=== PATIENT | male | born 1995 | race American Indian/Alaskan Native ===

== ENCOUNTER 2017-04-01 00:58 | Emergency (ER) | payer SELFPAY ==
[2017-04-01 01:41] LABS: Urine Drugs of Abuse Note Disclamer
[2017-04-01 01:56] LABS: Bilirubin,Urine NEG (Negative); Blood,Urine NEG (Negative); Ketones,Urine NEG (Negative); Leukocyte Esterase,Urine LG (Negative); Nitrite,Urine NEG (Negative); Protein,Urine <15 mg/dL mg/dL (Negative); RBC,Urine < 1.0 /HPF (0.0-6.0); Urobilinogen,Urine < 2.0 mg/dL (<2.0)
[2017-04-01 02:12] LABS: Basophils % (Auto) 0.4 % (0.0-1.8); Eosinophils % (Auto) 0.2 % (0.0-4.3); Hematocrit 47.1 % (35.5-45.6); Hemoglobin 15.7 gm/dl (11.8-15.2); Mean Corpuscular HGB Conc 33 % (32-34); Mean Corpuscular Hemoglobin 29 pg (28-32); Mean Corpuscular Volume 86 fl (84-94); Platelet Count 203 K/mm3 (140-440); Red Blood Count 5.51 M/mm3 (3.65-5.03); Red Cell Distribution Width 14.2 % (13.2-15.2)
[2017-04-01 03:03] LABS: Anion Gap 19 mmol/L; BUN/Creatinine Ratio 6.66; Blood Urea Nitrogen 6 mg/dL (9-20); Carbon Dioxide 27 mmol/L (22-30); Chloride 92.8 mmol/L (98-107); Glucose 116 mg/dL (75-100); Potassium 4.1 mmol/L (3.6-5.0); Sodium 135 mmol/L (137-145)
--- NOTE | 2017-04-01 03:26 | Emergency Department Report ---
HPI - General Chief Complaint: Psych Time Seen by Provider: 04/01/17 03:15 - HPI HPI: 21-year-old brought to ED with suicidal ideation, patient denies any plan that does voice, strong feelings of suicidal ideation. Patient placed in safe room upon ER arrival. ED Past Medical Hx - Surgical History Past Surgical History?: No - Family History Family history: hypertension - Social History Smoking Status: Never Smoker Substance Use Type: None - Medications Home Medications: Home Medications Medication Instructions Recorded Confirmed Last Taken Type No Known Home Medications [No 04/01/17 04/01/17 Unknown History Reported Home Medications] ED Review of Systems ROS: Stated complaint: MH EVAL Other details as noted in HPI Comment: All other systems reviewed and negative Neurological: as per HPI Psychiatric: anxiety, suicidal thoughts Physical Exam - Physical Exam Vital Signs: Vital Signs 04/01/17 01:07 Temperature 98.7 F Pulse Rate 89 Respiratory 16 Rate Blood Pressure 159/98 [Right] O2 Sat by Pulse 100 Oximetry Physical Exam: Gen. alert and oriented 3 in no distress Head atraumatic normocephalic Eyes PERR LA EOMI Chest regular rate and rhythm normal S1-S2 lungs clear bilaterally Abdomen soft nondistended Back no point tenderness paravertebral tenderness Neuro no focal deficit. Psych depressed mood with SI ED Course Vital Signs 04/01/17 01:07 Temperature 98.7 F Pulse Rate 89 Respiratory 16 Rate Blood Pressure 159/98 [Right] O2 Sat by Pulse 100 Oximetry ED Medical Decision Making - Lab Data Result diagrams: 04/01/17 01:58 04/01/17 01:58 Critical care attestation.: If time is entered above; I have spent that time in minutes in the direct care of this critically ill patient, excluding procedure time. ED Disposition Clinical Impression: Suicidal ideations Disposition: DC/TX-65 PS[facility] HOSP/PSY UNIT Is pt being admited?: No Does the pt Need Aspirin: No Condition: Stable Referrals: PRIMARY CARE, [Primary Care Provider] - 3-5 Days
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
[2017-04-02] MEDS: COGENTIN PO SCH (22:46)
[2017-04-02] MEDS: RisperDAL PO SCH (22:46)
--- NOTE | 2017-04-03 14:04 | Progress Note ---
Subjective - Reason for Consult Consult date: 04/03/17 Reason for consult: Psychiatry Follow-up - Chief Complaint Chief complaint: "I feel better" 21-year-old brought to ED with SI's and AH's. Today patient is calm and cooperative during the assessment. He stated that he feel much better today and denies that his brain is going to "explode." He stated on initial assessment that his brain was going to explode. He was not able to elaborate why he felt that way yesterday. He stated that he got needed rest the last 24 hours and feels "great." He denies hearing voices, but still have a circumstantial thought process. He denies SI/HI's, AVH's, and depression. He denies any side effects of his medications. Mental Status Exam - Vital signs Last Vital Signs Temp 97.9 F 04/03/17 10:00 Pulse 72 04/03/17 10:00 Resp 18 04/03/17 10:00 BP 118/70 04/03/17 10:00 Pulse Ox 99 04/03/17 10:00 - Exam Narrative exam: MSE: Appearance: calm, cooperative Behavior: regular eye contact Speech: regular rate and tone Mood: "so much better" Affect: congruent to mood Thought Process: circumstantial Thought Content: denies SI/HI's and AVH's Motor Activity: ambulatory Cognition: A/Ox 3 Insight: fair Judgment: fair Assessment and Plan Impression: Historical Dx: Bipolar DO and PTSD. 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 Substance Use DO (amphetamines). Today patient is calm and cooperative with a circumstantial thought process. Recommendation/Plan: Evaluate 1013 in 24 hours to determine proper dispo Continue Risperdal 0.5 mg PO HS for mood/psychotic symptoms and Cogentin 0.5 mg PO HS for EPS Prevention. Discussed possible metabolic side effects of Risperdal with patient.
[2017-04-03] MEDS: COGENTIN PO SCH (21:48)
[2017-04-03] MEDS: RisperDAL PO SCH (21:56)
--- NOTE | 2017-04-04 08:37 | Progress Note ---
Subjective - Reason for Consult Reason for consult: psych consult - Chief Complaint Chief complaint: 21-year-old brought to ED with SI's and AH's. Today patient notes that he is doing well. He states that he's not having any suicidal thoughts nor any homicidal thoughts. He states that this was simply just an issue of him not coping very well. He is tolerating the medications states that his mom and grandma can pick him up today. Per the nursing staff there's been no issues with the patient. Patient is not showing any current acute risk of harming himself or others. Mental Status Exam - Vital signs Last Vital Signs Temp 97.7 F 04/04/17 08:03 Pulse 65 04/04/17 08:03 Resp 16 04/04/17 08:03 BP 92/53 04/04/17 08:03 Pulse Ox 99 04/04/17 08:03 - Exam Orientation: time, place, person Affect: normal Mood: appropriate Thought Process: Intact Perceptions: none Speech: normal rate and pattern Concentration: focused Motor activity: normal Level of consciousness: alert Memory: Intact Sleep Symptoms: None Appetite: increased Interaction: cooperative Mini mental status exam(if necessary): 24-30 Assessment and Plan Impression: Historical Dx: Bipolar DO and PTSD. 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 Substance Use DO (amphetamines). Recommendation/Plan: At this time the patient is in no acute risk of harm to self or others. Rescind the 1013- follow up with outpt care. patient notes that his family is able to pick him up when discharged.
[2017-04-04 16:28] VITALS: BP 112/72
== END 2017-04-04 16:25 ==
LOC: EEVIPCON 00:58 → ED 00:58
DX: R45.851 Suicidal ideations (principal)
CPT/HCPCS: 36415; 80048; 80307; 81001; 85025; 99285; G0480; 80320

== ENCOUNTER 2019-04-10 15:01 | Emergency (ER) | payer SELFPAY ==
[2019-04-10 15:36] VITALS: BP 144/94
--- NOTE | 2019-04-10 15:37 | Event Note ---
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 Further treatment and workup at subsequent clinical providers discretion. Patient/guardian urged not to elope from the ED as their condition may be serious if not clinically assessed and managed.
--- NOTE | 2019-04-10 15:42 | Emergency Department Report ---
ED Extremity Problem HPI - General Chief complaint: Extremity Injury, Upper Stated complaint: (L) ARM PAIN Time Seen by Provider: 04/10/19 15:33 Source: patient Mode of arrival: Ambulatory Limitations: No Limitations - History of Present Illness Initial comments: pt is a 23 yo male who presents to the ED with c/o BUE soreness that began a couple weeks ago. 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 states he has pain and muscle soreness/aches in the BUE after frequent use. he denies any fall or injury. he denies any numbness or weakness. pt denies any PMHx or allergies to meds. - Related Data Previous Rx's Medication Instructions Recorded Last Taken Type Benztropine [Cogentin] 0.5 mg PO HS #90 tablet 04/04/17 Unknown Rx risperiDONE [RisperDAL] 0.5 mg PO HS #90 tablet 04/04/17 Unknown Rx Cyclobenzaprine [Flexeril] 10 mg PO QHS PRN #10 tablet 04/10/19 Unknown Rx Naproxen [Naprosyn TAB] 500 mg PO BID PRN #14 tablet 04/10/19 Unknown Rx Allergies Allergy/AdvReac Type Severity Reaction Status Date / Time dust Allergy Unknown Uncoded 04/02/17 12:32 pet dander Allergy Unknown Uncoded 04/02/17 12:32 ED Review of Systems ROS: Stated complaint: (L) ARM PAIN Other details as noted in HPI Comment: All other systems reviewed and negative ED Past Medical Hx - Past Medical History Hx Psychiatric Treatment: Yes (BIPOLAR PTSD) Additional medical history: ADHD - Surgical History Past Surgical History?: No - Social History Smoking Status: Never Smoker Substance Use Type: None - Medications Home Medications: Home Medications Medication Instructions Recorded Confirmed Last Taken Type Benztropine [Cogentin] 0.5 mg PO HS #90 tablet 04/04/17 Unknown Rx risperiDONE [RisperDAL] 0.5 mg PO HS #90 tablet 04/04/17 Unknown Rx Cyclobenzaprine [Flexeril] 10 mg PO QHS PRN #10 tablet 04/10/19 Unknown Rx Naproxen [Naprosyn TAB] 500 mg PO BID PRN #14 tablet 04/10/19 Unknown Rx ED Physical Exam - General Limitations: No Limitations General appearance: alert, in no apparent distress - Head Head exam: Present: atraumatic, normocephalic - Eye Eye exam: Present: normal appearance - ENT ENT exam: Present: mucous membranes moist - Respiratory Respiratory exam: Present: normal lung sounds bilaterally. Absent: respiratory distress, wheezes, rales, rhonchi, stridor, chest wall tenderness, accessory muscle use, decreased breath sounds, prolonged expiratory - Cardiovascular Cardiovascular Exam: Present: regular rate, normal rhythm, normal heart sounds. Absent: systolic murmur, diastolic murmur, rubs, gallop - Extremities Exam Extremities exam: Present: other (2+ radial pulses bilaterally, no bony tenderness to anywhere in the BUE, FROM of the BUE with no diffculty at all, sensation intact, mild soreness in the bilateral biceps, no edema of the BUE, no erythema of the BUE, no ecchymosis of the BUE, able to do full flexion of the biceps bilaterally without difficulty ) - Neurological Exam Neurological exam: Present: alert, oriented X3 - Psychiatric Psychiatric exam: Present: normal affect, normal mood - Skin Skin exam: Present: warm, dry, intact ED Course Vital Signs 04/10/19 15:34 Temperature 98.4 F Pulse Rate 96 H Respiratory 16 Rate Blood Pressure 144/94 [Left] O2 Sat by Pulse 96 Oximetry ED Medical Decision Making - Medical Decision Making pt is a 23 yo male who presents to the ED with c/o BUE soreness that began a couple weeks ago. 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 states he has pain and muscle soreness/aches in the BUE after frequent use. he denies any fall or injury. he denies any numbness or weakness. pt denies any PMHx or allergies to meds. VSS. on exam: 2+ radial pulses bilaterally, no bony tenderness to anywhere in the BUE, FROM of the BUE with no diffculty at all, sensation intact, mild soreness in the bilateral biceps, no edema of the BUE, no erythema of the BUE, no ecchymosis of the BUE, able to do full flexion of the biceps bilaterally without difficulty. pt given prescription for anti-inflammatory and muscle relaxer. advised pt to please take medication as prescribed as needed. do not drive or operate heavy machinery while taking muscle relaxer. rest from dance and exercise. may use ice for 15 minutes at a time. follow up with a primary care doctor in the next 2-3 days for reexamination. return to the emergency room for any new or worsening symptoms or if symptoms not improving. Critical care attestation.: If time is entered above; I have spent that time in minutes in the direct care of this critically ill patient, excluding procedure time. ED Disposition Clinical Impression: Bilateral arm pain Disposition: TO HOME OR SELFCARE Is pt being admited?: No Does the pt Need Aspirin: No Condition: Stable Instructions: Musculoskeletal Pain (ED) Additional Instructions: please take medication as prescribed as needed. do not drive or operate heavy machinery while taking muscle relaxer. rest from dance and exercise. may use ice for 15 minutes at a time. follow up with a primary care doctor in the next 2-3 days for reexamination. return to the emergency room for any new or worsening symptoms or if symptoms not improving. Prescriptions: Cyclobenzaprine [Flexeril] 10 mg PO QHS PRN #10 tablet PRN Reason: Muscle Spasm Naproxen [Naprosyn TAB] 500 mg PO BID PRN #14 tablet PRN Reason: pain Referrals: [facility] [Provider Group] - 2-3 Days [facility] [Outside] - 2-3 Days [facility] [Outside] - 2-3 Days Time of Disposition: 15:39 Print Language: TURKMEN
== END 2019-04-10 15:56 | disposition home or self-care (01) ==
LOC: ED 15:01
DX: M79.601 Pain in right arm (principal); M79.602 Pain in left arm; F31.9 Bipolar disorder, unspecified; Z79.899 Other long term (current) drug therapy; Z88.8 Allergy status to other drugs, medicaments and biological substances; Z91.048 Other nonmedicinal substance allergy status
CPT/HCPCS: 99283

== ENCOUNTER 2020-11-01 14:33 | Emergency (ER) | payer SELFPAY ==
[2020-11-01 14:39] VITALS: BP 117/71
--- NOTE | 2020-11-01 15:14 | Emergency Department Report ---
ED ENT HPI - General Chief complaint: Earache Stated complaint: EAR LT PAINS Time Seen by Provider: 11/01/20 14:46 Source: patient Mode of arrival: Ambulatory Limitations: No Limitations - History of Present Illness Initial comments: 4-year-old male with a past medical history of bipolar disorder and ADD presents to the ER today with complaints of left ear pain. Patient states that he started having pain in his left ear about 2 days ago. He reports mild clear drainage from the left ear. He denies any injury to the left ear. He reports associated rhinorrhea and nasal congestion. He denies any fever, chills, cough, or any other symptoms. He denies any ill contacts. MD complaint: ear pain -: Gradual (2 days ) - Related Data Previous Rx's Medication Instructions Recorded Last Taken Type Benztropine [Cogentin] 0.5 mg PO HS #90 tablet 04/04/17 Unknown Rx risperiDONE [RisperDAL] 0.5 mg PO HS #90 tablet 04/04/17 Unknown Rx Cyclobenzaprine [Flexeril] 10 mg PO QHS PRN #10 tablet 04/10/19 Unknown Rx Naproxen [Naprosyn TAB] 500 mg PO BID PRN #14 tablet 04/10/19 Unknown Rx Amoxicillin [Trimox CAP] 500 mg PO Q8H #30 capsule 11/01/20 Unknown Rx Cetirizine HCl [Zyrtec 10mg tab] 10 mg PO DAILY #30 tablet 11/01/20 Unknown Rx Allergies Allergy/AdvReac Type Severity Reaction Status Date / Time dust Allergy Unknown Uncoded 04/02/17 12:32 pet dander Allergy Unknown Uncoded 04/02/17 12:32 ED Dental HPI - General Chief complaint: Earache Stated complaint: EAR LT PAINS Time Seen by Provider: 11/01/20 14:46 Source: patient Mode of arrival: Ambulatory Limitations: No Limitations - Related Data Previous Rx's Medication Instructions Recorded Last Taken Type Benztropine [Cogentin] 0.5 mg PO HS #90 tablet 04/04/17 Unknown Rx risperiDONE [RisperDAL] 0.5 mg PO HS #90 tablet 04/04/17 Unknown Rx Cyclobenzaprine [Flexeril] 10 mg PO QHS PRN #10 tablet 04/10/19 Unknown Rx Naproxen [Naprosyn TAB] 500 mg PO BID PRN #14 tablet 04/10/19 Unknown Rx Amoxicillin [Trimox CAP] 500 mg PO Q8H #30 capsule 11/01/20 Unknown Rx Cetirizine HCl [Zyrtec 10mg tab] 10 mg PO DAILY #30 tablet 11/01/20 Unknown Rx Allergies Allergy/AdvReac Type Severity Reaction Status Date / Time dust Allergy Unknown Uncoded 04/02/17 12:32 pet dander Allergy Unknown Uncoded 04/02/17 12:32 ED Review of Systems ROS: Stated complaint: EAR LT PAINS Other details as noted in HPI Comment: All other systems reviewed and negative Constitutional: denies: chills, fever Eyes: denies: eye pain, eye discharge, vision change ENT: ear pain, congestion, other (Rhinorrhea) Respiratory: denies: cough, shortness of breath, SOB with exertion, SOB at rest, wheezing Cardiovascular: denies: chest pain, palpitations Gastrointestinal: denies: abdominal pain, nausea, diarrhea Genitourinary: denies: urgency, dysuria Musculoskeletal: denies: back pain, joint swelling, arthralgia Skin: denies: rash, lesions, change in color, change in hair/nails, pruritus Neurological: denies: headache, weakness, paresthesias Psychiatric: denies: anxiety, depression ED Past Medical Hx - Past Medical History Previous Medical History?: Yes Hx Psychiatric Treatment: Yes (BIPOLAR PTSD) Additional medical history: ADHD - Surgical History Past Surgical History?: No - Social History Smoking Status: Never Smoker Substance Use Type: None - Medications Home Medications: Home Medications Medication Instructions Recorded Confirmed Last Taken Type Benztropine [Cogentin] 0.5 mg PO HS #90 tablet 04/04/17 Unknown Rx risperiDONE [RisperDAL] 0.5 mg PO HS #90 tablet 04/04/17 Unknown Rx Cyclobenzaprine [Flexeril] 10 mg PO QHS PRN #10 tablet 04/10/19 Unknown Rx Naproxen [Naprosyn TAB] 500 mg PO BID PRN #14 tablet 04/10/19 Unknown Rx Amoxicillin [Trimox CAP] 500 mg PO Q8H #30 capsule 11/01/20 Unknown Rx Cetirizine HCl [Zyrtec 10mg tab] 10 mg PO DAILY #30 tablet 11/01/20 Unknown Rx ED Physical Exam - General Limitations: No Limitations General appearance: alert, in no apparent distress - Head Head exam: Present: atraumatic, normocephalic, normal inspection - Eye Eye exam: Present: normal appearance, PERRL, EOMI Pupils: Present: normal accommodation - ENT ENT exam: Present: normal external ear exam - Expanded ENT Exam Expanded Ear exam: Present: normal external inspection TM/Canal exam: Cerumen Impaction: Right TM, Left TM - Neck Neck exam: Present: normal inspection - Respiratory Respiratory exam: Absent: respiratory distress - Cardiovascular Cardiovascular Exam: Present: regular rate, normal rhythm, normal heart sounds - Neurological Exam Neurological exam: Present: alert, oriented X3, CN II-XII intact, normal gait - Psychiatric Psychiatric exam: Present: normal affect, normal mood - Skin Skin exam: Present: intact ED Course Vital Signs 11/01/20 14:37 Temperature 98.0 F Pulse Rate 89 Respiratory 20 Rate Blood Pressure 117/71 O2 Sat by Pulse 96 Oximetry ED Medical Decision Making - Medical Decision Making Patient with cerumen impaction both ears. Difficulty seeing left TM due to cerumen. Patient instructed to use Debrox [id number], he will also be treated prophylactically with some antibiotics for possible otitis media on the left side and given referral to ENT for further evaluation and ear irrigation if not better. No evidence of otitis externa, mastoiditis, cellulitis or any other significant emergent problems at this time. Patient expressed understanding of instructions and agree with plan. Patient was stable at time of discharge. Critical care attestation.: If time is entered above; I have spent that time in minutes in the direct care of this critically ill patient, excluding procedure time. ED Disposition Clinical Impression: Otalgia of left ear, Impacted cerumen of both ears Disposition: DC-01 TO HOME OR SELFCARE Is pt being admited?: No Does the pt Need Aspirin: No Condition: Stable Instructions: Earwax Buildup, Adult, Earache, Adult Additional Instructions: I recommend that you use the Debrox from [id number] to help with the earwax. Take the Zyrtec and amoxicillin as prescribed. You can take Tylenol or ibuprofen as needed for pain. Follow-up with the ENT listed on your discharge instructions if your symptoms not better. Return to the ER if your symptoms changes or worsens in any way. Prescriptions: Amoxicillin [Trimox CAP] 500 mg PO Q8H #30 capsule Cetirizine HCl [Zyrtec 10mg tab] 10 mg PO DAILY #30 tablet Referrals: MADDY HOPPER MD [Staff Physician] - 3-5 Days Time of Disposition: 15:21
== END 2020-11-01 15:40 | disposition home or self-care (01) ==
LOC: ED 14:33
DX: H61.23 Impacted cerumen, bilateral (principal); H92.02 Otalgia, left ear; F31.9 Bipolar disorder, unspecified; Z79.899 Other long term (current) drug therapy; Z91.048 Other nonmedicinal substance allergy status
CPT/HCPCS: 99282

== ENCOUNTER 2021-04-06 17:11 | Emergency (ER) | payer SELFPAY | END 2021-04-06 18:05 | disposition left against medical advice (07) | LOC: ED 17:11 | DX: Z00.00 Encounter for general adult medical examination without abnormal findings (principal); Z53.21 Procedure and treatment not carried out due to patient leaving prior to being seen by health care provider ==

== ENCOUNTER 2022-01-04 16:41 | Emergency (ER) | payer SELFPAY ==
[2022-01-04] MEDS: LORazepam 2 MG/ML VIAL IM STA (17:26)
[2022-01-04] MEDS: ZIPRASIDONE MESYLATE 20 MG VIAL IM ONE (17:27)
[2022-01-04 17:55] LABS: Basophils % (Auto) 0.8 % (0.0-1.8); Eosinophils % (Auto) 0.8 % (0.0-4.3); Hematocrit 43.4 % (35.5-45.6); Hemoglobin 14.1 gm/dl (11.8-15.2); Lymphocytes # (Auto) 0.9 K/mm3 (1.2-5.4); Lymphocytes % (Auto) 18.9 % (13.4-35.0); Mean Corpuscular HGB Conc 33 % (32-34); Mean Corpuscular Volume 89 fl (84-94); Monocytes # (Auto) 0.3 K/mm3 (0.0-0.8); Monocytes % (Auto) 5.6 % (0.0-7.3); Platelet Count 200 K/mm3 (140-440); Red Blood Count 4.91 M/mm3 (3.65-5.03); Red Cell Distribution Width 14.5 % (13.2-15.2)
[2022-01-04 18:14] LABS: Alanine Aminotransferase 22 units/L (7-56); Albumin 4.3 g/dL (3.9-5); BUN/Creatinine Ratio 9; Blood Urea Nitrogen 11 mg/dL (9-20); Calcium 9.4 mg/dL (8.4-10.2); Hemolysis Index 23
--- NOTE | 2022-01-04 19:13 | Emergency Department Report ---
ED General Adult HPI - General Chief complaint: Psych Stated complaint: BAD DRUGS/BODY PAIN Time Seen by Provider: 01/04/22 17:12 Source: patient Mode of arrival: Ambulatory Limitations: No Limitations - History of Present Illness Initial comments: patient presents 2/2 being combative and confused. Patient not answering questions appropriately. Animated, yelling and combative. Patient with hx of drug abuse from his records here (positive for meth in 2017). Patient unable to give much history. Patient also with hx of bipolar disorder and PTSD. - Related Data Previous Rx's Medication Instructions Recorded Last Taken Type Benztropine [Cogentin] 0.5 mg PO HS #90 tablet 04/04/17 Unknown Rx risperiDONE [RisperDAL] 0.5 mg PO HS #90 tablet 04/04/17 Unknown Rx Cyclobenzaprine [Flexeril] 10 mg PO QHS PRN #10 tablet 04/10/19 Unknown Rx Naproxen [Naprosyn TAB] 500 mg PO BID PRN #14 tablet 04/10/19 Unknown Rx Amoxicillin [Trimox CAP] 500 mg PO Q8H #30 capsule 11/01/20 Unknown Rx Cetirizine HCl [Zyrtec 10mg tab] 10 mg PO DAILY #30 tablet 11/01/20 Unknown Rx Allergies Allergy/AdvReac Type Severity Reaction Status Date / Time dust Allergy Unknown Uncoded 04/02/17 12:32 pet dander Allergy Unknown Uncoded 04/02/17 12:32 ED Review of Systems ROS: Stated complaint: BAD DRUGS/BODY PAIN Other details as noted in HPI Comment: Unobtainable due to pts medical conditions ED Past Medical Hx - Past Medical History Hx Psychiatric Treatment: Yes (BIPOLAR PTSD) Additional medical history: ADHD - Social History Smoking Status: Never Smoker Substance Use Type: None - Medications Home Medications: Home Medications Medication Instructions Recorded Confirmed Last Taken Type Benztropine [Cogentin] 0.5 mg PO HS #90 tablet 04/04/17 Unknown Rx risperiDONE [RisperDAL] 0.5 mg PO HS #90 tablet 04/04/17 Unknown Rx Cyclobenzaprine [Flexeril] 10 mg PO QHS PRN #10 tablet 04/10/19 Unknown Rx Naproxen [Naprosyn TAB] 500 mg PO BID PRN #14 tablet 04/10/19 Unknown Rx Amoxicillin [Trimox CAP] 500 mg PO Q8H #30 capsule 11/01/20 Unknown Rx Cetirizine HCl [Zyrtec 10mg tab] 10 mg PO DAILY #30 tablet 11/01/20 Unknown Rx ED Physical Exam - General Limitations: No Limitations General appearance: alert, in no apparent distress, appears intoxicated - Head Head exam: Present: atraumatic, normocephalic - Eye Eye exam: Present: PERRL, EOMI - ENT ENT exam: Present: mucous membranes moist, other (airway patent) - Neck Neck exam: Present: other (no JVD; no swelling) - Respiratory Respiratory exam: Present: other (good air entry, nml I:E, CTAB, no use of ELVIRA) - Cardiovascular Cardiovascular Exam: Present: regular rate. Absent: rubs, gallop - GI/Abdominal GI/Abdominal exam: Present: soft, normal bowel sounds. Absent: distended, tenderness - Extremities Exam Extremities exam: Present: full ROM. Absent: tenderness - Back Exam Back exam: Present: full ROM. Absent: tenderness - Neurological Exam Neurological exam: Present: alert, other (GCS 14/15 ([id number]); no gross CN palsies; moving all extremities equally) - Psychiatric Psychiatric exam: Present: agitated, other (animated affect; not answering SI, HI questions; with apparent visual hallucinations) - Skin Skin exam: Present: warm, normal color ED Course Vital Signs 01/04/22 01/04/22 16:58 20:20 Temperature 98.2 F 98.9 F Pulse Rate 117 H 66 Respiratory 32 H 18 Rate Blood Pressure 152/98 111/62 [Right] O2 Sat by Pulse 100 98 Oximetry ED Medical Decision Making - Lab Data Result diagrams: 01/04/22 17:37 01/04/22 17:37 Laboratory Tests 01/04/22 01/04/22 01/04/22 17:37 17:37 17:37 WBC 4.5 RBC 4.91 Hgb 14.1 Hct 43.4 MCV 89 MCH 29 MCHC 33 RDW 14.5 Plt Count 200 Lymph % (Auto) 18.9 [place] % (Auto) 5.6 Eos % (Auto) 0.8 Baso % (Auto) 0.8 Lymph # (Auto) 0.9 L [place] # (Auto) 0.3 Eos # (Auto) 0.0 Baso # (Auto) 0.0 Seg Neutrophils % 73.9 H Seg Neutrophils # 3.3 Sodium 140 Potassium 3.6 Chloride 103.5 Carbon Dioxide 21 L Anion Gap 19 BUN 11 Creatinine 1.2 Estimated GFR > 60 BUN/Creatinine Ratio 9 Glucose 119 H Calcium 9.4 Total Bilirubin 0.30 AST 25 ALT 22 Alkaline Phosphatase 79 Total Protein 7.1 Albumin 4.3 Albumin/Globulin Ratio 1.5 Salicylates < 0.3 L Acetaminophen Plasma/Serum Alcohol 01/04/22 01/04/22 17:37 17:37 WBC RBC Hgb Hct MCV MCH MCHC RDW Plt Count Lymph % (Auto) [place] % (Auto) Eos % (Auto) Baso % (Auto) Lymph # (Auto) [place] # (Auto) Eos # (Auto) Baso # (Auto) Seg Neutrophils % Seg Neutrophils # Sodium Potassium Chloride Carbon Dioxide Anion Gap BUN Creatinine Estimated GFR BUN/Creatinine Ratio Glucose Calcium Total Bilirubin AST ALT Alkaline Phosphatase Total Protein Albumin Albumin/Globulin Ratio Salicylates Acetaminophen 5.0 L Plasma/Serum Alcohol < 0.01 UA, U tox pending - Medical Decision Making Diff dz: -acute psychosis, likely 2/2 recreational drug intoxication. Acute phase of bipolar disorder also possible. 1013 signed as patient cannot care for himself @ this time. MH consulted. Critical care attestation.: If time is entered above; I have spent that time in minutes in the direct care of this critically ill patient, excluding procedure time. ED Disposition Clinical Impression: Acute psychosis Disposition: 30 STILL A PATIENT Is pt being admited?: No Does the pt Need Aspirin: No Condition: Stable Time of Disposition: 21:00 (Patient care transferred to Dr. Dave (oncoming ER doc). sign out was given by me to him. )
[2022-01-05 09:23] VITALS: BP 137/87
--- NOTE | 2022-01-05 10:22 | Consultation ---
History of Present Illness - Reason for Consult Consult date: 01/05/22 Reason for consult: Combative - History of Present Psychiatric Illness The patient is a 26 year old male with history of PTSD, ADHD, and Depression who presents to the ED with confusion . In my encounter with the patient, he is calm, alert and oriented x3. The patient states that " I just took some bad drugs." He reports not on psychotropic medications but attends therapy. The patient denies any current suicidal/homicidal ideation and denies hallucinations. PAST PSYCHIATRIC HISTORY: Diagnoses: PTSD, ADHD, Depression Suicide attempts or Self-harm behavior: Denies Prior psychiatric hospitalizations: Yes Substance Abuse history: Meth, Marijuana Previous psychiatric medications tried: Denies Outpatient treatment:Yes PAST MEDICAL HISTORY: None reported or document Family Psychiatric History: None reported or documented SOCIAL HISTORY Marital Status: Single Living Arrangements: Lives alone Employment Status: Unemployed Access to guns/weapons: Denies Education: College History of Abuse: Yes Legal History: Denies REVIEW OF SYSTEMS Constitutional: Negative for weight loss ENT: Negative for stridor Respiratory: Negative for cough or hemoptysis All other systems reviewed and are negative MENTAL STATUS EXAMINATION General Appearance and Behavior: Age appropriate, wearing appropriate clothes, cooperative, polite with questioning, good eye contact, calm, polite Cooperation: cooperative Psychomotor Behavior: Psychomotor normal Mood: Ok Affect and affective range: Congruent with stated mood Thought Process: Goal directed Thought Content:Reality oriented Speech: Normal volume, Regular rate and rhythm Suicidal Ideation: Denies Homicidal Ideation: Denies Hallucination: Denies Delusions: None elicited Impulse Control: limited Insight and Judgment: Limited Memory: intact Attention: attentive Orientation: Alert and oriented Diagnoses: Mental health evaluation Treatment Plan DC 1013 Continue home meds PSYCHOTHERAPY: Supportive psychotherapy provided MEDICAL: Per primary team DELIRIUM PRECAUTIONS: Please re-orient patient frequently, keep lights on during the day, and minimize benzodiazepines and opiates as these medications could worsen patient's confusion. DECK LID FITTER: Per medical team DISPOSITION: Do not recommend acute psychiatric inpatient treatment. Weatherization And Housing Inspector manolo white provide patient with psychiatric outpatient resources. Will sign off. Thank you for the consult. Case staffed with Dr. Moran Medications and Allergies Allergies Allergy/AdvReac Type Severity Reaction Status Date / Time dust Allergy Unknown Uncoded 04/02/17 12:32 pet dander Allergy Unknown Uncoded 04/02/17 12:32 Home Medications Medication Instructions Recorded Confirmed Last Taken Type Benztropine [Cogentin] 0.5 mg PO HS #90 tablet 04/04/17 Unknown Rx risperiDONE [RisperDAL] 0.5 mg PO HS #90 tablet 04/04/17 Unknown Rx Cyclobenzaprine [Flexeril] 10 mg PO QHS PRN #10 tablet 04/10/19 Unknown Rx Naproxen [Naprosyn TAB] 500 mg PO BID PRN #14 tablet 04/10/19 Unknown Rx Amoxicillin [Trimox CAP] 500 mg PO Q8H #30 capsule 11/01/20 Unknown Rx Cetirizine HCl [Zyrtec 10mg tab] 10 mg PO DAILY #30 tablet 11/01/20 Unknown Rx Mental Status Exam - Vital signs Last Vital Signs Temp 98.5 F 01/05/22 09:13 Pulse 67 01/05/22 09:13 Resp 20 01/05/22 09:13 BP 137/87 01/05/22 09:13 Pulse Ox 89 01/05/22 09:13 Results Result Diagrams: 01/04/22 17:37 01/04/22 17:37 Abnormal lab results 01/04/22 01/04/22 01/04/22 Range/Units 17:37 17:37 17:37 Lymph # (Auto) 0.9 L (1.2-5.4) K/mm3 Seg Neutrophils % 73.9 H (40.0-70.0) % Carbon Dioxide 21 L (22-30) mmol/L Glucose 119 H (75-100) mg/dL Total Creatine Kinase (55-170) units/L Salicylates < 0.3 L (2.8-20.0) mg/dL Acetaminophen (10.0-30.0) ug/mL 01/04/22 01/04/22 Range/Units 17:37 17:37 Lymph # (Auto) (1.2-5.4) K/mm3 Seg Neutrophils % (40.0-70.0) % Carbon Dioxide (22-30) mmol/L Glucose (75-100) mg/dL Total Creatine Kinase 302 H (55-170) units/L Salicylates (2.8-20.0) mg/dL Acetaminophen 5.0 L (10.0-30.0) ug/mL All other labs normal.
[2022-01-05 12:16] LABS: Bacteria,Urine 1+ /HPF (Negative); Bilirubin,Urine NEG (Negative); Blood,Urine NEG (Negative); Color,Urine Yellow (Yellow); Mucus,Urine 1+ /HPF; Protein,Urine <15 mg/dL mg/dL (Negative)
[2022-01-05 12:19] LABS: Benzodiazepines Screen,Urine Negative; Cocaine Screen,Urine Negative; Methadone Screen,Urine Negative; Opiate Screen,Urine Negative
[2022-01-05 12:38] LABS: Amphetamine Screen,Urine Positive; Cannabinoid Screen,Urine Positive
--- NOTE | 2022-01-05 13:03 | Event Note ---
Date: 01/05/22 (13:00) Psych progress FU. Patient came yesterday combative and confused. Patient lucid now. States he had taken a bad batch of drugs. Denies SI, HI, visual and auditory hallucinations. Also denies CP, SOB, palpitations, diaphoresis. Patient was seen by Psych, who cleared him for discharge. ED General adult EXAM - General Limitations: No Limitations - Head Head exam: Positive: atraumatic, normocephalic - ENT ENT exam: Positive: mucous membranes moist, other (airway patent) - Neck Neck exam: Positive: other (supple; no JVD) - Respiratory Respiratory exam: Positive: other (good air entry, nml I:E, CTAB, no use of ELVIRA ) - Cardiovascular Cardiovascular Exam: Positive: regular rate. Negative: rubs, gallop - GI/Abdominal GI/Abdominal exam: Positive: soft, normal bowel sounds. Negative: distended, tenderness - Extremities Extremities exam: Positive: full ROM. Negative: tenderness - Back Back exam: full ROM. denies: tenderness - Neurological Neurological exam: Positive: alert, oriented X3, CN II-XII intact, other (GCS 15/15). Negative: motor sensory deficit - Psychiatric Psychiatric exam: Positive: normal affect, other (no obvious hallucinations or delusions). Negative: homicidal ideation, suicidal ideation - Skin Skin exam: Positive: warm, normal color ED Medical Decision Making - Lab Data Result diagrams: 01/04/22 17:37 01/04/22 17:37 Laboratory Tests 01/04/22 01/04/22 01/04/22 17:37 17:37 17:37 WBC 4.5 RBC 4.91 Hgb 14.1 Hct 43.4 MCV 89 MCH 29 MCHC 33 RDW 14.5 Plt Count 200 Lymph % (Auto) 18.9 [place] % (Auto) 5.6 Eos % (Auto) 0.8 Baso % (Auto) 0.8 Lymph # (Auto) 0.9 L [place] # (Auto) 0.3 Eos # (Auto) 0.0 Baso # (Auto) 0.0 Seg Neutrophils % 73.9 H Seg Neutrophils # 3.3 Sodium 140 Potassium 3.6 Chloride 103.5 Carbon Dioxide 21 L Anion Gap 19 BUN 11 Creatinine 1.2 Estimated GFR > 60 BUN/Creatinine Ratio 9 Glucose 119 H Calcium 9.4 Total Bilirubin 0.30 AST 25 ALT 22 Alkaline Phosphatase 79 Total Creatine Kinase Total Protein 7.1 Albumin 4.3 Albumin/Globulin Ratio 1.5 Urine Color Urine Turbidity Urine pH Ur Specific [place] Urine Protein Urine Glucose (UA) Urine Ketones Urine Blood Urine Nitrite Urine Bilirubin Urine Urobilinogen Ur Leukocyte Esterase Urine WBC (Auto) Urine RBC (Auto) U Epithel Cells (Auto) Urine Bacteria (Auto) Urine WBC Clumps Urine Mucus Salicylates < 0.3 L Urine Opiates Screen Urine Methadone Screen Acetaminophen Ur Barbiturates Screen Ur Phencyclidine Scrn Ur Amphetamines Screen U Benzodiazepines Scrn Urine Cocaine Screen U Marijuana (THC) Screen Drugs of Abuse Note Plasma/Serum Alcohol 01/04/22 01/04/22 01/04/22 17:37 17:37 17:37 WBC RBC Hgb Hct MCV MCH MCHC RDW Plt Count Lymph % (Auto) [place] % (Auto) Eos % (Auto) Baso % (Auto) Lymph # (Auto) [place] # (Auto) Eos # (Auto) Baso # (Auto) Seg Neutrophils % Seg Neutrophils # Sodium Potassium Chloride Carbon Dioxide Anion Gap BUN Creatinine Estimated GFR BUN/Creatinine Ratio Glucose Calcium Total Bilirubin AST ALT Alkaline Phosphatase Total Creatine Kinase 302 H Total Protein Albumin Albumin/Globulin Ratio Urine Color Urine Turbidity Urine pH Ur Specific [place] Urine Protein Urine Glucose (UA) Urine Ketones Urine Blood Urine Nitrite Urine Bilirubin Urine Urobilinogen Ur Leukocyte Esterase Urine WBC (Auto) Urine RBC (Auto) U Epithel Cells (Auto) Urine Bacteria (Auto) Urine WBC Clumps Urine Mucus Salicylates Urine Opiates Screen Urine Methadone Screen Acetaminophen 5.0 L Ur Barbiturates Screen Ur Phencyclidine Scrn Ur Amphetamines Screen U Benzodiazepines Scrn Urine Cocaine Screen U Marijuana (THC) Screen Drugs of Abuse Note Plasma/Serum Alcohol < 0.01 01/05/22 01/05/22 11:44 11:44 WBC RBC Hgb Hct MCV MCH MCHC RDW Plt Count Lymph % (Auto) [place] % (Auto) Eos % (Auto) Baso % (Auto) Lymph # (Auto) [place] # (Auto) Eos # (Auto) Baso # (Auto) Seg Neutrophils % Seg Neutrophils # Sodium Potassium Chloride Carbon Dioxide Anion Gap BUN Creatinine Estimated GFR BUN/Creatinine Ratio Glucose Calcium Total Bilirubin AST ALT Alkaline Phosphatase Total Creatine Kinase Total Protein Albumin Albumin/Globulin Ratio Urine Color Yellow Urine Turbidity Slightly-cloudy Urine pH 8.0 H Ur Specific [place] 1.018 Urine Protein <15 mg/dl Urine Glucose (UA) Neg Urine Ketones Tr Urine Blood Neg Urine Nitrite Neg Urine Bilirubin Neg Urine Urobilinogen 2.0 Ur Leukocyte Esterase Sm Urine WBC (Auto) 34.0 H Urine RBC (Auto) 4.0 U Epithel Cells (Auto) < 1.0 Urine Bacteria (Auto) 1+ Urine WBC Clumps Few Urine Mucus 1+ Salicylates Urine Opiates Screen Negative Urine Methadone Screen Negative Acetaminophen Ur Barbiturates Screen Negative Ur Phencyclidine Scrn Negative Ur Amphetamines Screen Positive U Benzodiazepines Scrn Negative Urine Cocaine Screen Negative U Marijuana (THC) Screen Positive Drugs of Abuse Note Disclamer Plasma/Serum Alcohol - Medical Decision Making Diff dz: - Likely 2/2 recreational drug intoxication (marijuana and meth). Not suicidal or homicidal. Sober @ this time. IMPRESSION: 1. DRUG INTOXICATION ED Disposition Disposition: HOME / SELF CARE / HOMELESS Is pt being admited?: No Does the pt Need Aspirin: No Condition: Stable Instructions: Substance Use Disorder Additional Instructions: Professional and Agency Contacts To help [facility] (12/03) [place] Crisis Line: Suicide Prevention Line: Crisis Text Line: Text START to [phone] Emergency: 911 Outpatient [facility] Behavioral Health Resources: [facility]: [facility] [address] [place], [place] [address] [facility] [address] [place] [address] Sunday thru Sunday - 8am - 5pm Call to schedule an assessment for mental health and substance abuse prog glenn [place]: [facility] Address: [address] [place] [address] Sunday thru Sunday- 7am-2pm [facility] Address: [address] [place] [address] Sunday thru Sunday: 8:30AM-5PM Referrals: MIRZA OWEN MD [Primary Care Provider] - 3-5 Days Time of Disposition: 13:02
== END 2022-01-05 13:23 | disposition home or self-care (01) ==
LOC: ED 16:41
DX: F29 Unspecified psychosis not due to a substance or known physiological condition (principal); F31.9 Bipolar disorder, unspecified; Z79.899 Other long term (current) drug therapy; Z91.048 Other nonmedicinal substance allergy status; Z91.09 Other allergy status, other than to drugs and biological substances
CPT/HCPCS: 36415; 80053; 80307; 81001; 82550; 85025; 87086; 96372; 99284; J2060; J3486; 80320; G0480

== ENCOUNTER 2022-04-12 02:48 | Emergency (ER) | payer SELFPAY ==
[2022-04-12] MEDS ORDERED: SODIUM CHLORIDE 0.9% 1000 ML 1,000 ML IV ONE (03:33)
--- NOTE | 2022-04-12 03:36 | Emergency Department Report ---
History of Present Illness - General Chief Complaint: Overdose Stated Complaint: DRUG RELATED,ACTING STRANGE Time Seen by Provider: 04/12/22 03:20 Source: EMS Mode of arrival: Stretcher Limitations: No Limitations - History of Present Illness Initial Comments: 26-year-old male [place] station with agitation. When asked patient reported that he has been doing some liquid illicit drug use that is likely amphetamine. Patient was given Narcan by EMS with minimal response. Patient reported that this is the first time is doing something of this nature. No suicidal or homicidal ideation reported. Patient also denies any chest pain, shortness of breath or palpitation. No other modifying or associated factors reported. MD Complaint: intentional overdose - Related Data Previous Rx's Medication Instructions Recorded Last Taken Type Benztropine [Cogentin] 0.5 mg PO HS #90 tablet 04/04/17 Unknown Rx risperiDONE [RisperDAL] 0.5 mg PO HS #90 tablet 04/04/17 Unknown Rx Cyclobenzaprine [Flexeril] 10 mg PO QHS PRN #10 tablet 04/10/19 Unknown Rx Naproxen [Naprosyn TAB] 500 mg PO BID PRN #14 tablet 04/10/19 Unknown Rx Amoxicillin [Trimox CAP] 500 mg PO Q8H #30 capsule 11/01/20 Unknown Rx Cetirizine HCl [Zyrtec 10mg tab] 10 mg PO DAILY #30 tablet 11/01/20 Unknown Rx Allergies Allergy/AdvReac Type Severity Reaction Status Date / Time dust Allergy Unknown Uncoded 04/02/17 12:32 pet dander Allergy Unknown Uncoded 04/02/17 12:32 ED Review of Systems ROS: Stated complaint: DRUG RELATED,ACTING STRANGE Other details as noted in HPI Comment: All other systems reviewed and negative Constitutional: other (Agitation) Psychiatric: other (Agitation) ED Past Medical Hx - Past Medical History Previous Medical History?: Yes Hx Psychiatric Treatment: Yes (BIPOLAR PTSD) Additional medical history: ADHD - Surgical History Past Surgical History?: No - Social History Smoking Status: Current Every Day Smoker Substance Use Type: Alcohol - Medications Home Medications: Home Medications Medication Instructions Recorded Confirmed Last Taken Type Benztropine [Cogentin] 0.5 mg PO HS #90 tablet 04/04/17 Unknown Rx risperiDONE [RisperDAL] 0.5 mg PO HS #90 tablet 04/04/17 Unknown Rx Cyclobenzaprine [Flexeril] 10 mg PO QHS PRN #10 tablet 04/10/19 Unknown Rx Naproxen [Naprosyn TAB] 500 mg PO BID PRN #14 tablet 04/10/19 Unknown Rx Amoxicillin [Trimox CAP] 500 mg PO Q8H #30 capsule 11/01/20 Unknown Rx Cetirizine HCl [Zyrtec 10mg tab] 10 mg PO DAILY #30 tablet 11/01/20 Unknown Rx ED Physical Exam - General Limitations: No Limitations General appearance: alert, anxious - Head Head exam: Present: normal inspection - Eye Eye exam: Present: normal appearance Pupils: Present: normal accommodation - ENT ENT exam: Present: normal exam, normal orophraynx, mucous membranes dry - Neck Neck exam: Present: normal inspection, full ROM. Absent: tenderness - Respiratory Respiratory exam: Present: normal lung sounds bilaterally. Absent: respiratory distress, accessory muscle use - Cardiovascular Cardiovascular Exam: Present: normal rhythm, tachycardia, normal heart sounds - GI/Abdominal GI/Abdominal exam: Present: soft, normal bowel sounds. Absent: distended, tenderness - Extremities Exam Extremities exam: Present: normal inspection, normal capillary refill. Absent: tenderness, pedal edema, joint swelling - Back Exam Back exam: Absent: tenderness - Neurological Exam Neurological exam: Present: alert, oriented X3 - Psychiatric Psychiatric exam: Present: normal affect, agitated - Skin Skin exam: Present: warm, normal color ED Course Vital Signs 04/12/22 04/12/22 04/12/22 02:50 03:17 03:30 Temperature 99.8 F H Pulse Rate 100 H 95 H 67 Respiratory 18 37 H 10 L Rate Blood Pressure 121/68 140/93 O2 Sat by Pulse 99 93 100 Oximetry 04/12/22 04/12/22 03:46 04:00 Temperature Pulse Rate 64 64 Respiratory 17 15 Rate Blood Pressure 126/84 126/84 O2 Sat by Pulse 99 100 Oximetry ED Medical Decision Making - Medical Decision Making Here with possible overdose on methamphetamine--noticed to be agitated--we will go ahead and hydrate and order routine psych labs and continue to monitor. In the meantime we will also hydrate with IV fluids 1 L bolus x1 labs reviewed --UDS only shows THC Critical care attestation.: If time is entered above; I have spent that time in minutes in the direct care of this critically ill patient, excluding procedure time. ED Disposition Clinical Impression: Overdose of illicit drug Disposition: 01 HOME / SELF CARE / HOMELESS Is pt being admited?: No Does the pt Need Aspirin: No Condition: Stable Instructions: Intentional Drug Overdose, Preventing Poisoning, Adult Additional Instructions: Avoid illicit drug use for your general health Increase your daily fluid to help your hydration Call and schedule follow-up with your primary doctor in the next 3 to 5 days for progress Please do not hesitate to call or return to emergency if your symptoms worsen Referrals: NATASHA SETH MD [Referring] - 3-5 Days Time of Disposition: 05:24
[2022-04-12 04:10] LABS: Color,Urine Colorless (Yellow)
[2022-04-12 04:12] LABS: Bacteria,Urine 1+ /HPF (Negative); RBC,Urine < 1.0 /HPF (0.0-6.0); WBC,Urine < 1.0 /HPF (0.0-6.0)
[2022-04-12 04:21] LABS: Amphetamine Screen,Urine PRESUMPTIVE POSITIVE; Benzodiazepines Screen,Urine PRESUMPTIVE NEGATIVE; Cannabinoid Screen,Urine PRESUMPTIVE POSITIVE; Cocaine Screen,Urine PRESUMPTIVE NEGATIVE; Methadone Screen,Urine PRESUMPTIVE NEGATIVE; Opiate Screen,Urine PRESUMPTIVE NEGATIVE
[2022-04-12 06:16] LABS: Basophils % (Auto) 0.5 % (0.0-1.8); Eosinophils % (Auto) 0.5 % (0.0-4.3); Hemoglobin 12.9 gm/dl (11.8-15.2); Lymphocytes # (Auto) 1.1 K/mm3 (1.2-5.4); Lymphocytes % (Auto) 17.4 % (13.4-35.0); Mean Corpuscular HGB Conc 32 % (32-34); Mean Corpuscular Volume 89 fl (84-94); Monocytes # (Auto) 0.4 K/mm3 (0.0-0.8); Monocytes % (Auto) 6.4 % (0.0-7.3); Platelet Count 232 K/mm3 (140-440); Red Blood Count 4.48 M/mm3 (3.65-5.03); Red Cell Distribution Width 14.7 % (13.2-15.2)
[2022-04-12 06:27] VITALS: BP 110/91
[2022-04-12 06:48] LABS: Alanine Aminotransferase 19 units/L (7-56); Albumin 4.5 g/dL (3.9-5); BUN/Creatinine Ratio 11; Blood Urea Nitrogen 11 mg/dL (9-20); Calcium 9.3 mg/dL (8.4-10.2); Hemolysis Index 6
--- NOTE | 2022-04-13 09:50 | Electrocardiograph Report ---
[facility] Test Date: 2022-04-12 Test Time: 03:17:11 Pat Name: FLAQUITA JONES Department: Room: Gender: M Workers Compensation Manager: TAYA : 1995 Requested By: JACQUI LEUNG Order Number: [id number] Reading MD: Nathen Pride Measurements Intervals [place] Rate: 76 P: -7 CA: 168 QRS: 82 QRSD: 86 T: 59 QT: 376 QTc: 424 Interpretive Statements Sinus rhythm Probable left atrial enlargement st elevation early replorization No previous ECG available for comparison Electronically Signed On 04-13-2022 9:50:21 EDT by Nathen Pride
== END 2022-04-12 07:02 | disposition home or self-care (01) ==
LOC: ED 02:48
DX: T43.621A Poisoning by amphetamines, accidental (unintentional), initial encounter (principal); F31.9 Bipolar disorder, unspecified; F17.200 Nicotine dependence, unspecified, uncomplicated; Z72.89 Other problems related to lifestyle; Z91.09 Other allergy status, other than to drugs and biological substances; Z79.899 Other long term (current) drug therapy; Y92.89 Other specified places as the place of occurrence of the external cause
CPT/HCPCS: 36415; 80053; 80307; 80320; 81001; 85025; 93005; 96360; 99284; G0480

== ENCOUNTER 2022-05-01 21:42 | Emergency (ER) | payer SELFPAY ==
[2022-05-02] MEDS ORDERED: KETOROLAC 30 MG/1 ML INJ IM ONE (03:32)
[2022-05-02] MEDS ORDERED: BUPIVACAINE-EPINEPHRINE/PF 0.5%-1:200,000 (30 ML) VIAL INFILTRATI ONE (03:32)
--- NOTE | 2022-05-02 03:33 | Emergency Department Report ---
ED General Adult HPI - General Chief complaint: Skin/Abscess/Foreign Body Stated complaint: CYCST ON ARM,LEG PAIN Time Seen by Provider: 05/02/22 03:32 Source: patient, RN notes reviewed, old records reviewed Mode of arrival: Ambulatory Limitations: No Limitations - History of Present Illness Initial comments: The patient was evaluated in the emergency department for symptoms described in the history of present illness. He/she was evaluated in the context of the global COVID-19 pandemic, which necessitated consideration that the patient might be at risk for infection with the virus that causes COVID-19. Institutional protocols and algorithms that pertain to the evaluation of patients at risk for COVID-19 are in a state of rapid change based on information released by regulatory bodies including the CDC and federal and state organizations. These policies and algorithms were followed during the patient's care in the emergency department. Please note that these policies, procedures and recommendations changed on a rapid basis. This is a 26-year-old gentleman who states that he is right-hand dominant. He presents to the department today with 3 complaints. His first complaint is left axillary swelling and abscess. He denies sexual contact to the left arm. He states this is never happened to him before. His next complaint is a mild left-sided clavicular abrasion from doing home gymnastics. His third complaint is intermittent right sided knee locking up, from doing home gymnastics. He denies additional injuries and complaints. His main issue today is his left axillary abscess -: days(s) Location: left, upper extremity Consistency: constant Improves with: none Worsens with: movement - Related Data Previous Rx's Medication Instructions Recorded Last Taken Type Benztropine [Cogentin] 0.5 mg PO HS #90 tablet 04/04/17 Unknown Rx risperiDONE [RisperDAL] 0.5 mg PO HS #90 tablet 04/04/17 Unknown Rx Naproxen [Naprosyn TAB] 500 mg PO BID PRN #14 tablet 04/10/19 Unknown Rx Amoxicillin [Trimox CAP] 500 mg PO Q8H #30 capsule 11/01/20 Unknown Rx Cetirizine HCl [Zyrtec 10mg tab] 10 mg PO DAILY #30 tablet 11/01/20 Unknown Rx Acetaminophen [Non-Aspirin Extra 500 mg PO Q6HR PRN #30 tablet 05/02/22 Unknown Rx Strength] Doxycycline Monohydrate 100 mg PO BID #10 cap 05/02/22 Unknown Rx Ibuprofen [Motrin] 600 mg PO Q8H PRN #30 tablet 05/02/22 Unknown Rx Allergies Allergy/AdvReac Type Severity Reaction Status Date / Time dust Allergy Unknown Uncoded 04/02/17 12:32 pet dander Allergy Unknown Uncoded 04/02/17 12:32 ED Review of Systems ROS: Stated complaint: CYCST ON ARM,LEG PAIN Other details as noted in HPI Comment: All other systems reviewed and negative Musculoskeletal: arthralgia Skin: lesions, change in color ED Past Medical Hx - Past Medical History Hx Psychiatric Treatment: Yes (BIPOLAR PTSD) Additional medical history: ADHD - Social History Smoking Status: Current Every Day Smoker Substance Use Type: Alcohol - Medications Home Medications: Home Medications Medication Instructions Recorded Confirmed Last Taken Type Benztropine [Cogentin] 0.5 mg PO HS #90 tablet 04/04/17 Unknown Rx risperiDONE [RisperDAL] 0.5 mg PO HS #90 tablet 04/04/17 Unknown Rx Naproxen [Naprosyn TAB] 500 mg PO BID PRN #14 tablet 04/10/19 Unknown Rx Amoxicillin [Trimox CAP] 500 mg PO Q8H #30 capsule 11/01/20 Unknown Rx Cetirizine HCl [Zyrtec 10mg tab] 10 mg PO DAILY #30 tablet 11/01/20 Unknown Rx Acetaminophen [Non-Aspirin Extra 500 mg PO Q6HR PRN #30 tablet 05/02/22 Unknown Rx Strength] Doxycycline Monohydrate 100 mg PO BID #10 cap 05/02/22 Unknown Rx Ibuprofen [Motrin] 600 mg PO Q8H PRN #30 tablet 05/02/22 Unknown Rx ED Physical Exam - General Limitations: No Limitations General appearance: alert, in no apparent distress - Head Head exam: Present: atraumatic, normocephalic - Eye Eye exam: Present: normal appearance, EOMI. Absent: nystagmus - ENT ENT exam: Present: normal exam, normal orophraynx, mucous membranes moist, norm al external ear exam - Neck Neck exam: Present: normal inspection, full ROM. Absent: tenderness, meningismus - Respiratory Respiratory exam: Present: normal lung sounds bilaterally, other (There is a superficial left lateral superior clavicular abrasion. 0.5 cm). Absent: respiratory distress, wheezes, rales, rhonchi, stridor - Cardiovascular Cardiovascular Exam: Present: regular rate, normal rhythm, normal heart sounds. Absent: bradycardia, tachycardia, irregular rhythm, systolic murmur, diastolic murmur, rubs, gallop - GI/Abdominal GI/Abdominal exam: Present: soft. Absent: distended, tenderness, guarding, rebound, rigid, pulsatile mass - Rectal Rectal exam: Present: deferred - Extremities Exam Extremities exam: Present: full ROM, other (2+ pulses noted in the bilateral upper and lower extremities. There is no palpable cord. negative Homans sign. Muscular compartments are soft. The pelvis is stable.). Absent: normal inspection (There is an oval left-sided axillary abscess with induration, approximately 4 cm long, by 2 cm wide by 2 cm to), tenderness (There is no knee tenderness), pedal edema, calf tenderness - Back Exam Back exam: Present: normal inspection. Absent: tenderness, CVA tenderness (R), CVA tenderness (L), paraspinal tenderness, vertebral tenderness - Neurological Exam Neurological exam: Present: alert, oriented X3, normal gait, other (No facial droop. Tongue midline. Extraocular movements intact bilaterally. Facial sensation intact to light touch in V1, V2, V3 distribution bilaterally. 5 and a 5 strength in 4 extremities. Sensation intact to light touch in 4 extremities.). Absent: motor sensory deficit - Psychiatric Psychiatric exam: Present: anxious - Skin Skin exam: Present: warm, dry, erythema, abrasion ED Course Vital Signs 05/01/22 22:51 Temperature 98.3 F Pulse Rate 94 H Respiratory 18 Rate Blood Pressure 132/69 [Right] O2 Sat by Pulse 99 Oximetry - I & D Left Arm Type of Procedure: Simple Site: 4 Blade Size: 11 I & D Procedure: betadine prep Progress: Patient provides verbal consent for local anesthesia, and incision and drainage Left-sided axillary abscesses identified. Areas prepped with typical Betadine prep. Using a 25-gauge needle, 5 cc of 0.5% Marcaine, with 1: 200,000 epinephrine are infiltrated superficially. A stab incision is made in the area of maximum fluctuance, and extended for about 1-1/2 cm. Approximately 15 cc of bloody purulent material is expressed. Copious pressure is placed, and the abscess is continually expressed. A dressing is then placed. The patient tolerated the procedure well. All questions answered. Estimated blood loss 5 cc ED Medical Decision Making - Lab Data Vital Signs 05/01/22 22:51 Temperature 98.3 F Pulse Rate 94 H Respiratory 18 Rate Blood Pressure 132/69 [Right] O2 Sat by Pulse 99 Oximetry - Medical Decision Making Differential diagnosis, including but not limited to: Chest wall abrasion, left axillary abscess, nonspecific knee arthralgia Assessment and plan: 26-year-old gentleman with 3 nonemergent complaints. Right knee nontender, and has full range of motion. There is no tenderness. No further work-up is necessary. Left chest wall abrasion superficial and not infected. Very small, superficial to the clavicle. No other involvement. Not an emergent condition. No further ER work-up or evaluation is necessary. Left axillary abscess incised and drained. Warm compresses, Tylenol, Motrin, local antibiotics. Return precautions are reviewed. All questions answered. Please see procedure note Critical care attestation.: If time is entered above; I have spent that time in minutes in the direct care of this critically ill patient, excluding procedure time. ED Disposition Clinical Impression: Abscess of left axilla, Right knee pain, Abrasion of left clavicular region Disposition: HOME / SELF CARE / HOMELESS Is pt being admited?: No Does the pt Need Aspirin: No Condition: Good Instructions: Incision and Drainage Additional Instructions: Apply warm compresses to the left chest, left elbow. Weightbearing as tolerated in the right lower extremity. Physical activities as tolerated in general. Wear loosefitting clothing. Take the pain medications as needed and directed. Wash left armpit with gentle soap and water once every 12-24 hours. Follow-up with an outpatient primary care doctor for repeat checkup and evaluation within the next 5 to 7 days. Take the antibiotics as directed. Avoid consumption of alcohol, tobacco and smoke products. Please return to the emergency room right away with new pain, worsened pain, migration of pain, projectile vomiting, change in mental status, confusion, inability tolerate liquid feeds, new, worsened or different symptoms not present on the initial emergency room evaluation Referrals: [facility] [Provider Group] - 3-5 Days Forms: Work/School Release Form(ED)
[2022-05-02] MEDS ORDERED: ACETAMINOPHEN 325 MG TAB PO ONE (04:13)
[2022-05-02] MEDS ORDERED: DOXYCYCLINE 100 MG CAP PO ONE (04:13)
[2022-05-02 06:05] VITALS: BP 127/67
== END 2022-05-02 06:05 | disposition home or self-care (01) ==
LOC: ED 21:42
DX: S20.412A Abrasion of left back wall of thorax, initial encounter (principal); L02.412 Cutaneous abscess of left axilla; M25.561 Pain in right knee; F31.9 Bipolar disorder, unspecified; F17.200 Nicotine dependence, unspecified, uncomplicated; Z91.09 Other allergy status, other than to drugs and biological substances; X58.XXXA Exposure to other specified factors, initial encounter; Y93.89 Activity, other specified; Y92.89 Other specified places as the place of occurrence of the external cause; Y99.8 Other external cause status
CPT/HCPCS: 10060; 96372; 99282; J1885; J3490; 99283